=== PATIENT | female | born 1980 | race African-American/Black ===

== ENCOUNTER 2017-03-15 05:59 | Emergency (ER) | payer MEDICAID ==
[~2017-03-15] VITALS: Ht 160 cm; Wt 94.0 kg
[~2017-03-15 05:59] MED LIST: AMOX500T PO; HYDR-3535 PO
[2017-03-15 06:01] VITALS: BP 140/78; PULSE 78; RESP 16; TEMP 98.5; O2SAT 99
--- NOTE | 2017-03-15 06:27 | PD ---
HPI Chief Complaint: Injury Time Seen by Provider: 06:22 Travel History International Travel<30 days: No Contact w/Intl Traveler<30days: No Traveled to known affect area: No History of Present Illness HPI 36yo F with no significant PMH presents to the ED with c/o left big toe pain and ankle pain after stubbing her toe against a crate 2 days ago. States she is able to ambulate but has some ankle swelling in medial aspect. Pain is mainly in big pain and a little in the heel. Worst when she puts her shoe on. Denies any fever, chest pain, sob, n/v, abdominal pain, focal weakness or numbness. PFSH Past Medical History Arthritis: Yes Diminished Hearing: No Immunizations Current: Yes ?: Not : 2 Para: 2 Miscarriage: 0 : 0 Past Surgical History Surgical History: No Previous Surgery Social History Alcohol Use: No Tobacco Use: No Substance Use: No Allergies-Medications (Allergen,Severity, Reaction): Coded Allergies: acetaminophen (Unverified Adverse Reaction, Severe, GI UPSET, 03/15/17) propoxyphene (Unverified Adverse Reaction, Severe, GI UPSET, 03/15/17) Reported Meds & Prescriptions Reported Meds & Active Scripts Active Ibuprofen 600 Mg Tab 600 Mg PO Q8H PRN Review of Systems Except as stated in HPI: all other systems reviewed are Neg Physical Exam Narrative GENERAL: 36yo F not in distress. SKIN: Focused skin assessment warm/dry. HEAD: Atraumatic. Normocephalic. EYES: Pupils equal and round. No scleral icterus. No injection or drainage. ENT: No nasal bleeding or discharge. Mucous membranes pink and moist. NECK: Trachea midline. No JVD. CARDIOVASCULAR: Regular rate and rhythm. No murmur appreciated. RESPIRATORY: No accessory muscle use. Clear to auscultation. Breath sounds equal bilaterally. GASTROINTESTINAL: Abdomen soft, non-tender, nondistended. No rebound tenderness or guarding. MUSCULOSKELETAL: Left foot: +TTP 1st MTP diffusely. No open wounds. No swelling. DP 2+. Left ankle: Mild edema in medial malleolus. Good ROM in ankle. Sensation intact. NEUROLOGICAL: Awake and alert. No obvious cranial nerve deficits. Motor grossly within normal limits. Normal speech. PSYCHIATRIC: Appropriate mood and affect; insight and judgment normal. Data Data Last Documented VS Vital Signs Date Time Temp Pulse Resp B/P (MAP) Pulse Ox O2 Delivery O2 Flow Rate FiO2 03/15/17 06:01 98.5 78 16 140/78 (98) 99 Room Air Orders Orders Foot, Limited (2vws) (03/15/17 ) Ankle, Limited (Ap&Lat) (03/15/17 ) Ketorolac Inj (Toradol Inj) (03/15/17 06:30) MDM Medical Decision Making Medical Screen Exam Complete: Yes Emergency Medical Condition: Yes Differential Diagnosis Toe contusion vs. ankle sprain vs. fracture Narrative Course 36yo F with left big toe pain and ankle swelling after stubbing her toe 2 days ago. Xray left ankle showed no acute abnormality. Xray of left foot showed no acute abnormality. Pt given toradol IM. Reevaluated and feels better. Return precautions given. Diagnosis Primary Impression: Toe contusion Qualified Codes: S90.112A - Contusion of left great toe without damage to nail , initial encounter Patient Instructions: General Instructions Departure Forms: Tests/Procedures, Work Release Additional Instructions: Please follow up with your primary care physician in 3-7 days. Return to the ED if symptoms worsen. Med/Other Pt SpecificInfo: Prescription(s) given Scripts Ibuprofen (Ibuprofen) 600 Mg Tab 600 MG PO Q8H Y for PAIN, #20 TAB 0 Refills Prov: MinaPadmini DO 03/15/17 Disposition: 01 DISCHARGE HOME Condition: Stable Padmini Mina DO Mar 15, 2017 06:27
[2017-03-15] MEDS ORDERED: KETOROLAC TROMETHAMINE 60 MG/2 ML (IM) VIAL IM ONE (06:30)
--- NOTE | 2017-03-15 06:51 | RADRPT ---
EXAM DATE/TIME: 03/15/2017 06:41 [facility] COMPARISON: No previous studies available for comparison. INDICATIONS : Patient complains of left ankle pain after hitting left foot on animal cage. MEDICAL HISTORY : None. SURGICAL HISTORY : None. ENCOUNTER: Initial ACUITY: 1 day PAIN SCORE: 7/10 LOCATION: Left Ankle FINDINGS: 2 views the left ankle demonstrate no fracture or dislocation. Ankle mortise is intact. Mineralizatio n is within normal limits and there is no significant arthropathy. No soft tissue abnormality or radi opaque foreign body is identified. CONCLUSION: No acute abnormality is identified. Juan Baltazar MD on March 15, 2017 at 6:48 Board Certified Radiologist. This report was verified electronically.
--- NOTE | 2017-03-15 06:52 | RADRPT ---
EXAM DATE/TIME: 03/15/2017 06:41 [facility] COMPARISON: No previous studies available for comparison. INDICATIONS : Patient complains of left foot pain after hitting foot on animal cage. MEDICAL HISTORY : None. SURGICAL HISTORY : None. ENCOUNTER: Initial ACUITY: 1 day PAIN SCORE: 7/10 LOCATION: Left Foot FINDINGS: 2 views of the left foot demonstrate no fracture or dislocation. The Lisfranc joint appears intact. M ineralization is within normal limits and there is no significant arthropathy. No soft tissue abnorma lity or radiopaque foreign body is identified. CONCLUSION: No acute abnormality is identified. Juan Baltazar MD on March 15, 2017 at 6:50 Board Certified Radiologist. This report was verified electronically.
[2017-03-15] MEDS ORDERED: IBUP-232 PO (07:09)
== END 2017-03-15 07:19 | disposition home or self-care (01) ==
LOC: NEPC 05:59
DX: S90.112A Contusion of left great toe without damage to nail, initial encounter (principal); M25.572 Pain in left ankle and joints of left foot; R60.0 Localized edema; Z87.39 Personal history of other diseases of the musculoskeletal system and connective tissue; W22.09XA Striking against other stationary object, initial encounter
CPT/HCPCS: 73600; 73620; 96372; 99284; J1885